=== PATIENT | male | born 2000 | race Caucasian/White ===

== ENCOUNTER 2020-05-25 17:10 | Emergency (ER) | payer OTHER ==
[~2020-05-25] VITALS: Ht 180.3 cm; Wt 70.5 kg
[2020-05-25 17:14] VITALS: BP 147/98
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
[2020-05-25] MEDS ORDERED: IBUPROFEN 600 MG TABLET ONE (17:37)
--- NOTE | 2020-05-25 17:59 | NUR ---
Patient/Caregiver given discharge instructions and they have confirmed that they understand the instructions. Patient ambulatory with steady gait.
[2020-05-25] MEDS ORDERED: IBUPROFEN 600 MG TABLET PO ONE (18:00)
[2020-05-25] MEDS ORDERED: ONDANSETRON 2MG/ML, 2ML ONE (20:16)
[2020-05-25] MEDS ORDERED: MORPHINE SULFATE 4 MG/ML, 1ML ONE (20:17)
== END 2020-05-25 18:50 | disposition home or self-care (01) ==
LOC: ED 17:50
DX: S43.004A Unspecified dislocation of right shoulder joint, initial encounter (principal); X50.1XXA Overexertion from prolonged static or awkward postures, initial encounter; Y93.89 Activity, other specified; Y92.828 Other wilderness area as the place of occurrence of the external cause; Y99.8 Other external cause status
CPT/HCPCS: 23650; 99284; 99285